=== PATIENT | female | born 1940 | race Caucasian/White ===

== ENCOUNTER → 2016-12-17 | Outpatient (CLI) | payer OTHER | LOC: FIMAGING 10:23 | PROVIDERS: ATTEND Orthopaedic Surgery | DX: M19.011 Primary osteoarthritis, right shoulder (principal) ==

== ENCOUNTER → 2017-01-24 | Outpatient (CLI) | payer OTHER | LOC: FIMAGING 11:00 | DX: Z12.31 Encounter for screening mammogram for malignant neoplasm of breast (principal) | CPT/HCPCS: G0202 ==

== ENCOUNTER → 2017-04-25 | Outpatient (CLI) | payer OTHER | LOC: FIMAGING 13:56 | PROVIDERS: ATTEND Internal Medicine Endocrinology, Diabetes & Metabolism | DX: Z13.820 Encounter for screening for osteoporosis (principal) ==

== ENCOUNTER → 2018-01-25 | Outpatient (CLI) | payer OTHER | LOC: FIMAGING 13:01 | PROVIDERS: ATTEND Internal Medicine | DX: Z12.31 Encounter for screening mammogram for malignant neoplasm of breast (principal) ==

== ENCOUNTER 2018-02-06 18:35 | Emergency (ER) | payer OTHER ==
[2018-02-06] MEDS ORDERED: HYDROmorphONE/DILAUDID 2 MG/ML INJ IVP ONE (20:34)
--- NOTE | 2018-02-06 20:34 | EDPHY ---
H & P Stated Complaint: R LOWER LEG Time Seen by Provider: 02/06/18 20:11 HPI/ROS: CHIEF COMPLAINT: Right leg pain HISTORY OF PRESENT ILLNESS: Patient is a 69-year-old female who comes to the emergency department complaining of pain in her right patellar tendon region as well as to the bridge medial aspect of her right foot. She states that she has some mild swelling. It began on primarily in her knee and is gradually progressed over the last few days until now she can hardly walk. She does have a history of gout 50 years ago but has not had any problem since. 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 She also has bone spurs in her foot. 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 She showed up at the urgent care today and they performed an ultrasound of her lower extremities that revealed no DVT. They suggested that she follow up with her orthopedist tomorrow and she has an appointment with orthopedist. They also suggested CBC, chemistry, uric acid, sed rate and CRP. They told her to go to the ER if she develops shortness of breath. The patient decided to come to the ER to have her blood work done tonight. She has not had a fever. She has been taking Advil and cannabis with no pain relief. She denies having any trauma or injury. REVIEW OF SYSTEMS: Constitutional: denies: chills, fever, recent illness, recent injury EENTM: denies: blurred vision, double vision, nose congestion Respiratory: denies: cough, shortness of breath Cardiac: denies: chest pain, irregular heart rate, lightheadedness, palpitations Gastrointestinal/Abdominal: denies: abdominal pain, diarrhea, nausea, vomiting, blood streaked stools Genitourinary: denies: dysuria, frequency, hematuria, pain Musculoskeletal: See HPI Skin: denies: lesions, rash, jaundice, bruising Neurological: denies: headache, numbness, paresthesia, tingling, dizziness, weakness Hematologic/Lymphatic: denies: blood clots, easy bleeding, easy bruising Immunologic/allergic: denies: HIV/AIDS, transplant EXAM: GENERAL: Well-appearing, well-nourished and in no acute distress. HEAD: Atraumatic, normocephalic. EYES: Pupils equal round and reactive to light, extraocular movements intact, sclera anicteric, conjunctiva are normal. ENT: Lips with scabs secondary to squamous cell cancer treatment. TMs normal, nares patent, oropharynx clear without exudates. Moist mucous membranes. NECK: Normal range of motion, supple without lymphadenopathy or JVD. LUNGS: Breath sounds clear to auscultation bilaterally and equal. No wheezes rales or rhonchi. HEART: Regular rate and rhythm without murmurs, rubs or gallops. ABDOMEN: Soft, nontender, normoactive bowel sounds. No guarding, no rebound. No masses appreciated. BACK: No CVA tenderness, no spinal tenderness, step-offs or deformities EXTREMITIES: Exquisite pain to right patellar tendon region, no obvious swelling. No erythema or warmth. No obvious effusion. Decreased range of motion secondary to pain. Also some pain to the medial bridge of her right foot underneath. No obvious swelling or deformity. No erythema or warmth. No pain in her great toe joint. NEUROLOGICAL: Cranial nerves II through XII grossly intact. Normal speech, normal gait. 5/5 strength, normal movement in all extremities, normal sensation PSYCH: Normal mood, normal affect. SKIN: Significant diffuse dark spotting Source: Patient, Family, RN/MD - Personal History Current Tetanus/Diphtheria Vaccine: Unsure Tetanus Vaccine Date: UNKNOWN - Medical/Surgical History Hx Asthma: No Hx Chronic Respiratory Disease: No Hx Diabetes: No Hx Cardiac Disease: No Hx Renal Disease: No Hx Cirrhosis: No Hx Alcoholism: No Hx HIV/AIDS: No Hx Splenectomy or Spleen Trauma: No Other PMH: T- cell lymphoma (mycosis fungoides), HTN-labile, L patella tendon repair, proteinuria, squamous cell cancer lip - Family History Significant Family History: No pertinent family hx - Social History Smoking Status: Former smoker Alcohol Use: Sober Drug Use: None Constitutional: Initial Vital Signs Temperature (C) 36.8 C 02/06/18 18:40 Heart Rate 73 02/06/18 18:40 Respiratory Rate 18 02/06/18 18:40 Blood Pressure 152/97 H 02/06/18 18:40 O2 Sat (%) 97 02/06/18 18:40 O2 Delivery Mode Room Air Allergies/Adverse Reactions: tramadol Allergy (Severe, Verified 02/06/18 18:40) Hives bacitracin [Bacitracin] Allergy (Intermediate, Verified 02/06/18 18:40) Hives latex [Latex] Allergy (Intermediate, Verified 02/06/18 18:40) Hives polymyxin B sulfate [From Polysporin] Allergy (Intermediate, Verified 02/06/18 18:40) Hives codeine [Codeine] Allergy (Unknown, Verified 02/06/18 18:40) propoxyphene napsylate [From Darvocet-N 100] Allergy (Unknown, Verified 18:40) adhesives Allergy (Uncoded 01/02/13 13:17) Rash Home Medications: Medication Instructions Recorded Atorvastatin Calcium [Lipitor 40 40 mg PO DAILY@1800 05/22/13 mg (RX)] Bexarotene [Targretin] 150 mg PO DAILY@1800 05/22/13 Cholecalciferol Vit D3 [Vitamin D3 2,000 units PO DAILY@1800 05/22/13 1000 units (OTC)] Herbals/Supplements -Info Only 1 each PO AD 05/22/13 Lactulose [Cephulac 20 gm/30 ml 52.5 ml PO HS 05/22/13 oral soln (RX)] Levothyroxine [Synthroid 50 mcg 25 mcg PO DAILY06 05/22/13 (RX)] Lisinopril [Zestril 10 mg (RX)] 40 mg PO HS 05/22/13 Pharmacist Completed 05/22/13 05/22/13 Sodium Chloride 5% [Denzel-128 5%] 1 padma EACHEYE HS 05/22/13 Zolpidem Tartrate [Ambien 10 mg] 3.33 mg PO HS 05/22/13 cycloSPORINE 0.05% [Restasis Opht 1 drop EACHEYE BID 05/22/13 Drops(RX)] diphenhydrAMINE [Benadryl 25 MG 25 mg PO HS 05/22/13 (OTC)] Reconciled 05/28/13 Lexapro 08/26/16 Liothyronine Sodium 08/26/16 Restasis Opht Drops(*) 08/26/16 Retaine [facility] 08/26/16 Colchicine 1.2 mg PO DAILY #30 tablet 02/06/18 Indomethacin [Indocin 25 mg (*)] 50 mg PO TID #30 cap 02/06/18 fentaNYL [Duragesic 25 MCG Patch 25 mcg TD Q72H PRN #3 patch 02/06/18 (*)] Medical Decision Making - Diagnostics Imaging: Discussed imaging studies w/ weld inspector Radiologist ED Course/Re-evaluation: We discussed the x-ray and lab results. I am satisfied that she does not have signs of infection. She does have a slightly elevated CRP and uric acid. No effusion amenable to arthrocentesis. I will start her on colchicine and indomethacin and she will follow up with her orthopedist tomorrow. She has requested a CD to take with her. She and her family are happy with this plan. She has been eating cookies in the ER. Differential Diagnosis: Partial list of the Differential diagnosis considered include but were not limited to; gout, arthritis, bone spur and although unlikely based on the history and physical exam, I also considered septic joint, sepsis, DVT, arterial insufficiency, neuropathy, trauma. I discussed these differential diagnoses and the plan with the patient as well as the usual and expected course. The patient understands that the diagnosis is provisional and that in medicine we are not always correct and that further workup is often warranted. Usual and customary warnings were given. All of the patient's questions were answered. The patient was instructed to return to the emergency department should the symptoms at all worsen or return, otherwise to followup with the physician as we discussed. - Data Points Laboratory Results: Laboratory Results 02/06/18 20:41 02/06/18 20:41 Medications Given: Discontinued Medications Colchicine (Colchicine) 1.2 mg PO EDNOW ONE Stop: 02/06/18 21:28 Last Admin: 02/06/18 21:56 Dose: 1.2 mg Hydromorphone HCl (Dilaudid) 0.5 mg IVP EDNOW ONE Stop: 02/06/18 20:35 Last Admin: 02/06/18 20:46 Dose: 0.5 mg Indomethacin (Indocin) 50 mg PO EDNOW ONE Stop: 02/06/18 21:28 Last Admin: 02/06/18 21:56 Dose: 50 mg Departure - Departure Disposition: Home, Routine, Self-Care Clinical Impression: Knee pain, right anterior Gout Qualifiers: Gout site: knee Gout etiology: unspecified cause Chronicity: acute Laterality: right Qualified Code(s): M10.9 - Gout, unspecified Condition: Fair Instructions: Gout (ED) Additional Instructions: Follow-up with your orthopedist tomorrow as planned. Referrals: Viry Chang MD [Primary Care Provider] - As per Instructions Prescriptions: Colchicine 1.2 mg PO DAILY #30 tablet fentaNYL [Duragesic 25 MCG Patch (*)] 25 mcg TD Q72H PRN #3 patch PRN Reason: Pain, Severe Indomethacin [Indocin 25 mg (*)] 50 mg PO TID #30 cap
[2018-02-06 20:51] LABS: PLATELET COUNT 241 10^3/uL (150-400)
[2018-02-06] MEDS ORDERED: COLCHICINE 0.6 MG CAP/TAB PO ONE (21:27)
[2018-02-06] MEDS ORDERED: INDOMETHACIN 25 MG CAP PO ONE (21:27)
[2018-02-06 21:57] VITALS: BP 175/71
== END 2018-02-06 22:11 | disposition home or self-care (01) ==
DX: M10.9 Gout, unspecified (principal); I10 Essential (primary) hypertension; Z87.891 Personal history of nicotine dependence; Z85.818 Personal history of malignant neoplasm of other sites of lip, oral cavity, and pharynx; Z91.040 Latex allergy status
CPT/HCPCS: 73564; 73630; 96374; 99284; J1170; L1830

== ENCOUNTER → 2018-02-06 | Outpatient (CLI) | payer OTHER | LOC: BMCIMAGING 16:30 | PROVIDERS: ATTEND Family Medicine | DX: M25.561 Pain in right knee (principal); M79.661 Pain in right lower leg ==

== ENCOUNTER → 2018-08-10 | Outpatient (CLI) | payer OTHER | LOC: BHFA 11:30 | PROVIDERS: ATTEND Internal Medicine Cardiovascular Disease | DX: Z51.11 Encounter for antineoplastic chemotherapy (principal); R00.1 Bradycardia, unspecified ==

== ENCOUNTER → 2018-11-08 | Outpatient (CLI) | payer OTHER | LOC: BMCIMAGING 15:55 | PROVIDERS: ATTEND Physician Assistant | DX: K59.00 Constipation, unspecified (principal); R19.7 Diarrhea, unspecified | CPT/HCPCS: 82784-90; 83516-90 ==

== ENCOUNTER → 2019-01-25 | Outpatient (CLI) | payer OTHER | LOC: FIMAGING 12:26 | PROVIDERS: ATTEND Internal Medicine | DX: Z12.31 Encounter for screening mammogram for malignant neoplasm of breast (principal) ==

== ENCOUNTER → 2019-04-26 | Outpatient (CLI) | payer OTHER | LOC: FIMAGING 12:40 ==